=== PATIENT | male | born 1970 | race Caucasian/White ===

== ENCOUNTER 2023-12-17 09:05 | Day surgery (SDC) | payer BC ==
[~2023-12-17] VITALS: Ht 190.5 cm; Wt 95.7 kg
[~2023-12-17 09:05] MED LIST: AMOXICILLIN 50500 MG PO; BP MED; CHOLESTEROL MED; LR 1,000 ML IV SCH; NORCO 325 MG-51 TAB PO; Ondansetron 4 MG/2 ML VIAL IV PRN
[2023-12-17 10:18] VITALS: BP 118/79; PULSE 58; TEMP 96.9
[2023-12-17] MEDS ORDERED: CRESTOR40 MG PO (10:22)
[2023-12-17] MEDS ORDERED: TRICOR145 MG PO (10:22)
[2023-12-17] MEDS ORDERED: ZESTORETIC 12.51 TA1 PO (10:23)
[2023-12-17] MEDS ORDERED: SYNTHROID0.175 MG PO (10:24)
[2023-12-17 10:46] VITALS: BP 107/46; PULSE 61; TEMP 96.9
[2023-12-17 11:00] VITALS: BP 115/69; PULSE 57
[2023-12-17 11:10] VITALS: BP 108/57; PULSE 58
--- NOTE | 2023-12-17 11:23 | NUR ---
1045 PATIENT RETURNS TO [facility] VIA CART. PT AWAKE AND ALERT. RESPIRATIONS UNLABORED. AMBULATED TO RECLINER CHAIR WITH 2:1 SBA. PT DENIES NAUSEA OR ABDOMINAL PAIN. HOOKED UP TO MONITOR AND VS OBTAINED. CALL LIGHT AT SIDE AND KHOA PRESENT. 1048 PATIENT TOLERATING MUFFIN AND COFFEE WITHOUT NAUSEA OR DIFFICULTY SWALLOWING (EGD ONLY). 1125 DR. BAJWA IN ROOM SPEAKING WITH PATIENT. 1118 D/C INSTRUCTIONS REVIEWED WITH PATIENT. PT VERBALIZED UNDERSTANDING AND A COPY OF INSTRUCTIONS PROVIDED IN D/C FOLDER. 1120 PATIENT DRESSES SELF PATIENT DISCHARGED FROM UNIT VIA W/C TO A PERSONAL VEHICLE. PT LEFT HOSPITAL IN STABLE CONDITION.
== END 2023-12-17 11:27 | disposition home or self-care (01) ==
LOC: SDCO 09:05
DX: Z12.11 Encounter for screening for malignant neoplasm of colon (principal); K64.0 First degree hemorrhoids
CPT/HCPCS: J2704; J7120